=== PATIENT | male | born 1930 | race Caucasian/White ===

== ENCOUNTER 2017-11-10 15:12 | Emergency (ER) | payer MEDICARE, BC ==
[2016-11-06 11:19] VITALS: Wt 86.9 kg
[~2017-11-10 15:12] MED LIST changes: -AZIT-18 PO; -IPRA15SP7 NS
--- NOTE | 2017-11-10 15:21 | ER Report ---
History and Physical Time Seen By MD: 15:20 Hx. of Stated Complaint: NOT FEELING FOR 2 OR 3 DAYS HPI/ROS CHIEF COMPLAINT: DO NOT FEEL WELL HISTORY OF PRESENT ILLNESS: PT statse that 2-3 days ago starsted with sorethroat , bodyaches, generalized weakness, runny nose. Pt also feeling more sob. Pt wears 5 L NC chronically for oxygen. PT has not increase dhis oxygen. no cp. no fevers. + chills. no nausea or diarrhea. no vomiting. Pt did get a flu shot REVIEW OF SYSTEMS: Constitutional: No fever, + chills. Eyes: No discharge. ENT: + sore throat. Cardiovascular: No chest pain, no palpitations. Respiratory: + cough, + shortness of breath. Gastrointestinal: No abdominal pain, no vomiting. Genitourinary: No hematuria. Musculoskeletal: No back pain. Skin: No rashes. Neurological: No headache. Allergies: Coded Allergies: No Known Drug Allergies (Unverified , 11/10/17) Home Meds Active Scripts Rosuvastatin Calcium (CRESTOR) 10 Mg Tab, 10 MG PO HS, #0 TAB Prov:ABE LEVY MD 11/08/16 Reported Medications Atenolol (ATENOLOL) 25 Mg Tablet, 0.5 TAB PO QDAY, TAB 11/09/16 Omeprazole (OMEPRAZOLE) 20 Mg Capsule.dr, 1 CAP PO QDAY, CAP 11/05/16 Lisinopril (LISINOPRIL) 20 Mg Tablet, 20 MG PO QDAY, TAB 11/05/16 Prednisone (PREDNISONE) 20 Mg Tablet, 40 MG PO DAILY, TAB 11/05/16 Tamsulosin Hcl (FLOMAX) 0.4 Mg Cap.er.24h, 0.4 MG PO DAILY, CAP 11/05/16 Tiotropium [place] (SPIRIVA) 18 Mcg/Cap Inh, 18 MCG INH DAILY, INH 11/05/16 Furosemide (FUROSEMIDE) 20 Mg Tablet, 1 TAB PO BID, TAB 10/21/16 Cholecalciferol (Vitamin D3) (VITAMIN D3) 1,000 Unit Capsule, 1000 UNIT PO QDAY , CAPSULE 10/21/16 Allopurinol (Allopurinol) 300 Mg Tablet, 150 MG PO QDAY 10/21/16 Aspirin (ASPIR 81) 81 Mg Tablet.dr, 81 MG PO QDAY, TAB 10/21/16 Cyanocobalamin (Vitamin B-12) (B-12) 1,000 Mcg Tablet, 1 TAB PO QDAY 10/21/16 Docusate Sodium (DULCOLAX STOOL SOFTENER) 100 Mg Capsule, 100 MG PO PRN, CAPSULE 10/21/16 Past Medical/Surgical History Pmhx: htn, mi, copd, sycope, afib Pshx: pacer Reviewed Nurses Notes: Yes Old Medical Records Reviewed: Yes Hx Smoking: Yes Smoking Status: Former Smoker Exposure to Second Hand Smoke?: No Hx Substance Use Disorder: No Hx Alcohol Use: No Constitutional Vital Sign - Last 24 Hours 11/10/17 11/10/17 11/10/17 11/10/17 15:14 15:38 15:38 15:40 Temp 98.7 Pulse 84 89 Resp 18 12 B/P (MAP) 100/70 Pulse Ox 95 95 100 O2 Delivery Nasal Cannula Nasal Cannula Nasal Cannula O2 Flow Rate 4.0 4.0 11/10/17 15:40 Pulse 65 Resp 12 Physical Exam General Appearance: The patient is alert, has no immediate need for airway protection and no signs of toxicity. Eyes: Pupils equal and round no pallor or injection, EOMI ENT: no pharyngeal erythema or exudates, Mucous membranes are moist, TM are nl b/l Respiratory: There are no retractions, lungs have rhonchi b/l and decreased breath sounds Cardiovascular: Regular rate and rhythm. pulses are equal and symmetrical Gastrointestinal: Abdomen is soft and non tender, no masses, bowel sounds normal, no guarding, no rigidity or rebound Neurological: Cranial nerves II-XII grossly intact, no sensory or motor loss Skin: Warm and dry, no rashes. Musculoskeletal: Neck is supple non tender, no vertebral tenderness Extremities are nontender, non swollen and have full range of motion. DIFFERENTIAL DIAGNOSIS: After history and physical exam differential diagnosis was considered for pneumonia, influenza, bronchitis, sinusitis Medical Decision Making Data Points Result Diagram: 11/10/17 1504 11/10/17 1504 Laboratory Hematology Test 11/10/17 15:04 11/10/17 15:17 Red Blood Count 4.95 M/uL (4.00-5.60) Mean Corpuscular Volume 94.5 fL (80.0-96.0) Mean Corpuscular Hemoglobin 31.2 pg (26.0-33.0) Mean Corpuscular Hemoglobin Concent 33.0 g/dL (32.0-36.0) Red Cell Distribution Width 15.2 % (11.5-14.5) Mean Platelet Volume 8.9 fL (7.2-11.1) Neutrophils (%) (Auto) 71.0 % (39.4-72.5) Lymphocytes (%) (Auto) 19.8 % (17.6-49.6) Monocytes (%) (Auto) 6.5 % (4.1-12.4) Eosinophils (%) (Auto) 2.4 % (0.4-6.7) Basophils (%) (Auto) 0.3 % (0.3-1.4) Nucleated RBC Relative Count (auto) 0.1 /100WBC Neutrophils # (Auto) 5.3 K/uL (2.0-7.4) Lymphocytes # (Auto) 1.5 K/uL (1.3-3.6) Monocytes # (Auto) 0.5 K/uL (0.3-1.0) Eosinophils # (Auto) 0.2 K/uL (0.0-0.5) Basophils # (Auto) 0.0 K/uL (0.0-0.1) Nucleated RBC Absolute Count (auto) 0.01 K/uL Sodium Level 146 mmol/L (137-145) Potassium Level 3.7 mmol/L (3.5-5.0) Chloride Level 92 mmol/L (98-107) Carbon Dioxide Level 43 mmol/L (22-30) Blood Urea Nitrogen 24 mg/dl (9-21) Creatinine 1.30 mg/dl (0.66-1.25) Glomerular Filtration Rate Calc 52.2 Random Glucose 180 mg/dl (75-110) Calcium Level 9.5 mg/dl (8.4-10.2) Total Bilirubin 0.6 mg/dl (0.2-1.3) Aspartate Amino Transf (AST/SGOT) 24 U/L (0-35) Alanine Aminotransferase (ALT/SGPT) 26 U/L (0-56) Alkaline Phosphatase 99 U/L (0-126) Total Protein 7.3 gm/dl (6.3-8.2) Albumin 3.7 g/dl (3.5-5.0) Influenza Virus Type A (PCR) Negative (NEGATIVE) Influenza Virus Type B (PCR) Negative (NEGATIVE) Group A Streptococcus Screen Negative (NEGATIVE) Chemistry Test 11/10/17 15:04 11/10/17 15:17 White Blood Count 7.5 k/uL (4.5-11.0) Red Blood Count 4.95 M/uL (4.00-5.60) Hemoglobin 15.5 g/dL (14.0-18.0) Hematocrit 46.8 % (42.0-52.0) Mean Corpuscular Volume 94.5 fL (80.0-96.0) Mean Corpuscular Hemoglobin 31.2 pg (26.0-33.0) Mean Corpuscular Hemoglobin Concent 33.0 g/dL (32.0-36.0) Red Cell Distribution Width 15.2 % (11.5-14.5) Platelet Count 131 K/uL (150-450) Mean Platelet Volume 8.9 fL (7.2-11.1) Neutrophils (%) (Auto) 71.0 % (39.4-72.5) Lymphocytes (%) (Auto) 19.8 % (17.6-49.6) Monocytes (%) (Auto) 6.5 % (4.1-12.4) Eosinophils (%) (Auto) 2.4 % (0.4-6.7) Basophils (%) (Auto) 0.3 % (0.3-1.4) Nucleated RBC Relative Count (auto) 0.1 /100WBC Neutrophils # (Auto) 5.3 K/uL (2.0-7.4) Lymphocytes # (Auto) 1.5 K/uL (1.3-3.6) Monocytes # (Auto) 0.5 K/uL (0.3-1.0) Eosinophils # (Auto) 0.2 K/uL (0.0-0.5) Basophils # (Auto) 0.0 K/uL (0.0-0.1) Nucleated RBC Absolute Count (auto) 0.01 K/uL Glomerular Filtration Rate Calc 52.2 Calcium Level 9.5 mg/dl (8.4-10.2) Total Bilirubin 0.6 mg/dl (0.2-1.3) Aspartate Amino Transf (AST/SGOT) 24 U/L (0-35) Alanine Aminotransferase (ALT/SGPT) 26 U/L (0-56) Alkaline Phosphatase 99 U/L (0-126) Total Protein 7.3 gm/dl (6.3-8.2) Albumin 3.7 g/dl (3.5-5.0) Influenza Virus Type A (PCR) Negative (NEGATIVE) Influenza Virus Type B (PCR) Negative (NEGATIVE) Group A Streptococcus Screen Negative (NEGATIVE) EKG/Imaging Imaging hyperinflated lungs ED Course/Re-evaluation Clinical Indication for ER IV: IV Access ED Course 11/10/2017 5:21:54 pm Called lab. pt influenza still pending secondary to delay on placeing on machine. 11/10/2017 5:36:52 pm Pts influenza is negative. Pt states he feels better after fluid. 11/10/2017 5:44:13 pm Will d/c pt on abx and steriods. Pt has oxygen at home. Decision to Disposition Date: Nov 10, 2017 Decision to Disposition Time: 17:38 Depart Departure Latest Vital Signs Vital Signs Date Time Temp Pulse Resp B/P (MAP) Pulse Ox O2 Delivery O2 Flow Rate FiO2 11/10/17 15:40 65 12 11/10/17 15:40 100 Nasal Cannula 4.0 11/10/17 15:14 98.7 100/70 Impression: Primary Impression: Dehydration Additional Impression: COPD (chronic obstructive pulmonary disease) with acute bronchitis Condition: Improved Disposition: HOME OR SELF-CARE New Scripts Azithromycin 250 Mg Tab (AZITHROMYCIN 250 MG TAB) 250 Mg Tablet 1 TAB PO QDAY, #6 TAB 2 tabs tomorrow then one tab once a day until finished. Prov: TEAGAN ROBLES V DO 11/10/17 Prednisone (PREDNISONE) 20 Mg Tablet 20 MG PO BID, #10 TAB Prov: TEAGAN ROBLES V DO 11/10/17 Patient Instructions: COPD (Chronic Obstructive Pulmonary Disease) (ED) Additional Instructions: Your xray did not show pneumonia. You do not have the flu You were dehydrated and have bronchitis with exacerbation of your emphyema/COPD We gave you your evening medications. Scripts were sent to [facility]. Zithromax 2 pills tomorrow then one pill once a day each day to follow. Prednisone one pill twice a day until finished. Follow up with your doctor. Return if symptoms worsen prior to seeing your doctor. Problem Qualifiers TEAGAN ROBLES DO Nov 10, 2017 15:21
[2017-11-10] MEDS ORDERED: ALBUTEROL/IPRATROPIUM 3 ML NEB NEB ONE (15:30)
[2017-11-10 15:44] LABS: PLATELET COUNT, AUTOMATED 131 K/uL (150-450)
[2017-11-10] MEDS ORDERED: NS(*) 0.9% 500 ML BAG 500 ML IV ONE (15:55)
--- NOTE | 2017-11-10 16:39 | RADIOLOGY IMAGING REPORT ---
FACILITY: [facility] [place] PATIENT NAME: Broderick Montanez : 1930 MR: [id number] V: [id number] EXAM DATE: ORDERING PHYSICIAN: TEAGAN ROBLES TECHNOLOGIST: Location: [facility] [place] Patient: Broderick Montanez : 1930 Visit/Account:[id number] Date of Sevice: 11/10/2017 Exam type: CHEST PA AND LAT History: cough, sob Comparison: November 05, 2016. Findings: There is hyperexpansion the lung crain with flattening the hemidiaphragms. There is mild by basilar pleural parenchymal scarring. There is no evidence of acute-appearing pulmonary consolidation. Car diac silhouette is enlarged but unchanged. There Is a large hiatal hernia. A cardiac monitoring de vice projects over the anterior aspect of the medial left thorax IMPRESSION: 1. Hyperinflation lung crain Mild chronic pleural parenchymal scarring with no evidence of acute pulmonary consolidation Mild cardiomegaly Large hiatal hernia Report Dictated By: Mariaelena Willson MD at 11/10/2017 4:32 PM Report E-Signed By: Mariaelena Willson MD at 11/10/2017 4:34 PM WSN:[id number]
[2017-11-10 17:30] VITALS: BP 152/89
[2017-11-10] MEDS ORDERED: methylPREDNIS SUCC 125 MG/2ML IVP ONE (17:40)
[2017-11-10] MEDS ORDERED: AZITHROMYCIN 250 MG TAB PO ONE (17:40)
[2017-11-10] MEDS ORDERED: PRED20TA6 PO (17:49)
[2017-11-10] MEDS ORDERED: AZIT-18 PO (17:49)
[2017-11-10] MEDS ORDERED: EMS NS 0.9%(*) 1000 ML BAG 1,000 ML IV ONE (20:05)
== END 2017-11-10 18:00 | disposition home or self-care (01) ==
LOC: ER 15:17
DX: J44.9 Chronic obstructive pulmonary disease, unspecified (principal); E86.0 Dehydration; I51.7 Cardiomegaly; K44.9 Diaphragmatic hernia without obstruction or gangrene
CPT/HCPCS: 71046; 85025; 87081; 87502; 87880; 94640; 96361; 96374; 99285; J2930; J7620; Q0144; 82040; 82247; 82310; 82374; 82435; 82565; 82947; 84075; 84132; 84155; 84295; 84450; 84460; 84520

== ENCOUNTER → 2017-11-10 | Outpatient (CLI) | payer MEDICARE, BC ==
[2016-11-06 11:19] VITALS: BMI 25.8
[~2017-11-10] MED LIST: ALLO-2 PO; ASPI-1471 PO; ATEN-65 PO; AZIT-18 PO; CHOL100059 PO; CYAN100017 PO; DOCU-442 PO; FURO-45 PO; IPRA15SP7 NS; LISI20TA29 PO; OMEP-125 PO; PRED20TA6 PO; ROS10 PO; TAMS0.4C25 PO; TERA2CAP54 PO; TIO18R INH
== END ==
LOC: AMB 18:06
PROVIDERS: ATTEND Nurse Practitioner
DX: R53.1 Weakness (principal)
CPT/HCPCS: A0425; A0428

== ENCOUNTER → 2017-11-10 | Outpatient (CLI) | payer MEDICARE, BC ==
[2016-11-06 11:19] VITALS: BMI 25.8
== END ==
LOC: AMB 14:52
PROVIDERS: ATTEND Nurse Practitioner
DX: R53.1 Weakness (principal); I48.91 Unspecified atrial fibrillation; R06.00 Dyspnea, unspecified
CPT/HCPCS: A0425; A0427

== ENCOUNTER 2017-11-17 12:00 | Emergency (ER) | payer MEDICARE, BC ==
[2016-11-06 11:19] VITALS: Wt 90.7 kg
[~2017-11-17 12:00] MED LIST changes: +AZIT-18 PO; +IPRA15SP7 NS
--- NOTE | 2017-11-17 12:11 | ER Report ---
History and Physical Time Seen By MD: 12:11 HPI/ROS CHIEF COMPLAINT: Hypoxia HISTORY OF PRESENT ILLNESS: 87-year-old male patient presents to emergency room with complaint of hypoxia. Patient states that he is feeling fine. He states he is not feeling short of breath. He was seen at his ENT. When they checked his vital signs and noted that he had oxygen saturation of 75%. At that time they felt that he needed to be evaluated here in the emergency room. On arrival here in the emergency room patient was on oxygen and was satting in the 90s. He was placed on room air for a brief period of time and he did desat into the 70s. Patient denies having any cough. Patient states he is more annoyed with a continual runny nose. He states it is worse with eating. Has what he was seeing the ENT for. REVIEW OF SYSTEMS: Respiratory: As noted above Cardiovascular: No chest pain, no palpitations. Gastrointestinal: No vomiting, no abdominal pain. Musculoskeletal: No back pain. Allergies: Coded Allergies: No Known Drug Allergies (Unverified , 11/17/17) Home Meds Active Scripts Ipratropium [place] 0.06% Ns (IPRATROPIUM BROMIDE 0.06% NS) 15 Ml [place], 2 SPRAYS NS BID, #1 BOT Prov:MARY ELLEN RAMIREZ JR, MD 11/17/17 Azithromycin 250 Mg Tab (AZITHROMYCIN 250 MG TAB) 250 Mg Tablet, 1 TAB PO QDAY, #6 TAB 2 tabs tomorrow then one tab once a day until finished. Prov:TEAGAN ROBLES DO 11/10/17 Prednisone (PREDNISONE) 20 Mg Tablet, 20 MG PO BID, #10 TAB Prov:TEAGAN ROBLES DO 11/10/17 Rosuvastatin Calcium (CRESTOR) 10 Mg Tab, 10 MG PO HS, #0 TAB Prov:ABE LEVY MD 11/08/16 Reported Medications Atenolol (ATENOLOL) 25 Mg Tablet, 0.5 TAB PO QDAY, TAB 11/09/16 Omeprazole (OMEPRAZOLE) 20 Mg Capsule.dr, 1 CAP PO QDAY, CAP 11/05/16 Lisinopril (LISINOPRIL) 20 Mg Tablet, 20 MG PO QDAY, TAB 11/05/16 Prednisone (PREDNISONE) 20 Mg Tablet, 40 MG PO DAILY, TAB 11/05/16 Tamsulosin Hcl (FLOMAX) 0.4 Mg Cap.er.24h, 0.4 MG PO DAILY, CAP 11/05/16 Tiotropium [place] (SPIRIVA) 18 Mcg/Cap Inh, 18 MCG INH DAILY, INH 11/05/16 Furosemide (FUROSEMIDE) 20 Mg Tablet, 1 TAB PO BID, TAB 10/21/16 Cholecalciferol (Vitamin D3) (VITAMIN D3) 1,000 Unit Capsule, 1000 UNIT PO QDAY , CAPSULE 10/21/16 Allopurinol (Allopurinol) 300 Mg Tablet, 150 MG PO QDAY 10/21/16 Aspirin (ASPIR 81) 81 Mg Tablet.dr, 81 MG PO QDAY, TAB 10/21/16 Cyanocobalamin (Vitamin B-12) (B-12) 1,000 Mcg Tablet, 1 TAB PO QDAY 10/21/16 Docusate Sodium (DULCOLAX STOOL SOFTENER) 100 Mg Capsule, 100 MG PO PRN, CAPSULE 10/21/16 Past Medical/Surgical History Patient has a past medical history of hypertension, COPD, osteomyelitis, hard of hearing, bladder cancer. Patient has surgical history of pacemaker, orthopedic surgery. Reviewed Nurses Notes: Yes Hx Smoking: Yes Smoking Status: Former Smoker Exposure to Second Hand Smoke?: No Hx Substance Use Disorder: No Hx Alcohol Use: No Constitutional Vital Sign - Last 24 Hours 11/17/17 12:11 Temp 98.3 Pulse 71 Resp 20 B/P (MAP) 138/99 Pulse Ox 98 O2 Delivery Nasal Cannula Physical Exam General Appearance: The patient is alert, has no immediate need for airway protection and no current signs of toxicity. Respiratory: Chest is non tender, lungs are clear to auscultation. Cardiac: regular rate and rhythm Gastrointestinal: Abdomen is soft and non tender, no masses, bowel sounds normal. Musculoskeletal: Neck: Neck is supple and non tender. Extremities have full range of motion and are non tender. Skin: No rashes or lesions. DIFFERENTIAL DIAGNOSIS: After history and physical exam differential diagnosis was considered for shortness of breath including but not limited to pulmonary infectious process, COPD, asthma, pulmonary embolus and congestive heart failure. Medical Decision Making ED Course/Re-evaluation ED Course Patient was admitted and examined, history of physical or obtained. Differential diagnoses were considered. On examination lungs were slightly diminished in the bases. He was moving air. On 5 L of oxygen, which is where the patient normally is he is satting 98%. I do have some concerns that it could very well be the concentrator that is now working as well as it should. I requested that the nurse give the patient up and walk him. She did get him up with a tank of oxygen was able to walk approximately 20 feet at which time he continued to stay and 98%. She switched him over to the concentrator, low patient was sitting there he dropped down to 88%. I discussed this with the patient. I discussed with him that I would like him to talk with his oxygen company about either replacing his concentrator or giving him a new one. Patient states that is actually his own concentrator which he purchased. He is more concerned about the cost. But states that the concentrator works fine for him. He is off a lot of just for an hour at a time. We will go ahead and discharge patient home at this time. Since he is feeling fine and his oxygen levels are fine was on the appropriate amount of oxygen we will recommend that he get his concentrator looked at and follow-up with Dr. Ramirez ENT. I did call and talk with Dr. Ramirez's office. They were only able to get him in in the middle of November. They will talk with Dr. Ramirez see if they can double book him at an appointment for his evaluation since he missed it today. I discussed this patient who verbalized understanding and agreement with plan. Decision to Disposition Date: Nov 17, 2017 Decision to Disposition Time: 12:48 Depart Departure Latest Vital Signs Vital Signs Date Time Temp Pulse Resp B/P (MAP) Pulse Ox O2 Delivery O2 Flow Rate FiO2 11/17/17 12:11 98.3 71 20 138/99 98 Nasal Cannula Impression: Primary Impression: Hypoxia Condition: Improved Disposition: HOME OR SELF-CARE Patient Instructions: Hypoxia (ED) Additional Instructions: With you feeling fine I don't think that there is anything that needs to be done here in the ER. I would encourage you to get your portable concentrator evaluated, as I don't think that you are getting enough oxygen from that. Follow up with Dr. Ramirez, they will call to make an appointment. Return to the ER if condition worsens. MEHRDAD SUAREZ Nov 17, 2017 12:11
[2017-11-17 12:30] VITALS: BP 135/86
== END 2017-11-17 12:56 | disposition home or self-care (01) ==
LOC: ER 12:08
DX: R09.02 Hypoxemia (principal)
CPT/HCPCS: 99281

== ENCOUNTER 2017-12-14 19:58 | Inpatient (IN) | payer MEDICARE, BC ==
[~2017-12-14] VITALS: Ht 182.9 cm; Wt 78.5 kg
[~2017-12-14 19:58] MED LIST changes: -BUDE0.5A6 IH; -CETI-169 PO; -CLOP75TA PO; -FINA5TAB67 PO; -FLUO-176 PO; -FLUO-177 PO; -IPRA3AMP21 IH; -ROSU10TA13 PO
--- NOTE | 2017-12-14 20:04 | ER Report ---
History and Physical Time Seen By MD: 19:59 HPI/ROS CHIEF COMPLAINT: dehydrated, not eating HISTORY OF PRESENT ILLNESS: This is an 87 year old male. He has not been eating or drinking much for a few days. Poor appetite. he is feeling weak and dizzy and felt like he was getting dehydrated. He denies any pain. EMS found that the patient was in atrial flutter, and he does not recall having this in the past. He has no fevers or chills. He has not had shortness of breath. He is on chronic oxygen therapy at 5 liters by nasal canula. REVIEW OF SYSTEMS: Constitutional: No fever or chills. Eyes: Denies any vision changes. ENT: Denies sore throat or congestion. Cardiovascular: No chest pain. Respiratory: No cough. No shortness of breath. Gastrointestinal: No abdominal pain. No nausea or vomiting. Musculoskeletal: No pain, just feels weak. Skin: No rashes. Neurological: No numbness. No weakness. Allergies: Coded Allergies: prednisone (Verified Adverse Reaction, Unknown, hallucination, 11/17/17) Home Meds Active Scripts Ipratropium [place] 0.06% Ns (IPRATROPIUM BROMIDE 0.06% NS) 15 Ml [place], 2 SPRAYS NS BID, #1 BOT 11 Refills Prov:MARY ELLEN RAMIREZ JR, MD 12/07/17 Azithromycin 250 Mg Tab (AZITHROMYCIN 250 MG TAB) 250 Mg Tablet, 1 TAB PO QDAY, #6 TAB 2 tabs tomorrow then one tab once a day until finished. Prov:TEAGAN ROBLES DO 11/10/17 Rosuvastatin Calcium (CRESTOR) 10 Mg Tab, 10 MG PO HS, #0 TAB Prov:ABE LEVY MD 11/08/16 Reported Medications Atenolol (ATENOLOL) 25 Mg Tablet, 0.5 TAB PO QDAY, TAB 11/09/16 Omeprazole (OMEPRAZOLE) 20 Mg Capsule.dr, 1 CAP PO QDAY, CAP 11/05/16 Lisinopril (LISINOPRIL) 20 Mg Tablet, 20 MG PO QDAY, TAB 11/05/16 Tamsulosin Hcl (FLOMAX) 0.4 Mg Cap.er.24h, 0.4 MG PO DAILY, CAP 11/05/16 Tiotropium [place] (SPIRIVA) 18 Mcg/Cap Inh, 18 MCG INH DAILY, INH 11/05/16 Furosemide (FUROSEMIDE) 20 Mg Tablet, 1 TAB PO BID, TAB 10/21/16 Cholecalciferol (Vitamin D3) (VITAMIN D3) 1,000 Unit Capsule, 1000 UNIT PO QDAY , CAPSULE 10/21/16 Allopurinol (Allopurinol) 300 Mg Tablet, 150 MG PO QDAY 10/21/16 Aspirin (ASPIR 81) 81 Mg Tablet.dr, 81 MG PO QDAY, TAB 10/21/16 Cyanocobalamin (Vitamin B-12) (B-12) 1,000 Mcg Tablet, 1 TAB PO QDAY 10/21/16 Docusate Sodium (DULCOLAX STOOL SOFTENER) 100 Mg Capsule, 100 MG PO PRN, CAPSULE 10/21/16 Reviewed Nurses Notes: Yes Hx Smoking: Yes Smoking Status: Former Smoker Exposure to Second Hand Smoke?: No Hx Substance Use Disorder: No Hx Alcohol Use: No Constitutional Vital Sign - Last 24 Hours 12/14/17 12/14/17 12/14/17 12/14/17 19:57 20:04 20:11 20:13 Temp 98.3 Pulse 84 74 Resp 20 21 B/P (MAP) 155/111 155/111 (126) Pulse Ox 99 99 O2 Delivery Nasal Cannula O2 Flow Rate 5.0 12/14/17 12/14/17 12/14/17 12/14/17 20:28 20:30 20:35 20:37 Pulse 68 74 Resp 21 17 B/P (MAP) 147/108 (121) 155/101 (119) 160/100 (120) Pulse Ox 99 100 12/14/17 12/14/17 12/14/17 12/14/17 20:42 20:43 20:50 21:00 Pulse 75 82 73 Resp 18 18 22 B/P (MAP) 155/101 (119) 160/100 (120) 148/104 (119) Pulse Ox 99 99 99 O2 Delivery Nasal Cannula Nasal Cannula 12/14/17 12/14/17 12/14/17 12/14/17 21:05 21:20 21:30 21:35 Pulse 71 75 70 Resp 39 20 34 B/P (MAP) 159/114 (129) Pulse Ox 99 98 99 12/14/17 12/14/17 12/14/17 12/14/17 21:50 22:00 22:05 22:10 Pulse 79 71 72 Resp 40 29 27 B/P (MAP) 178/108 (131) Pulse Ox 98 98 97 Physical Exam General Appearance: The patient is alert. No acute distress. Eyes: Pupils are equal, round. No pallor, injection or icterus. ENT: Mucous membranes are moist. Normal oral mucosa. Posterior oropharynx is normal. Neck: Supple and non tender. Respiratory: Lungs are clear to auscultation. Cardiovascular: Regular rate and rhythm. Has a 2/6 systolic murmur, no gallops or rubs. Gastrointestinal: Abdomen is soft and non tender. Nondistended. Normal active bowel sounds. Neurological: Alert and oriented x3. Generalized weakness, but no focal deficits. No cranial nerve deficits. Skin: Warm and dry. Musculoskeletal: Extremities are nontender. Full range of motion. No tenderness in palpation of the thoracic and lumbar spine. DIFFERENTIAL DIAGNOSIS: After history and physical exam, differential diagnosis was considered for generalized weakness including but not limited to electrolyte abnormality, dehydration, cardiac causes and infectious causes. He does have a prior history of atrial fibrillation. Medical Decision Making Data Points Result Diagram: 12/14/17195312/14/171953 Laboratory Hematology Test 12/14/17 19:54 Red Blood Count 5.08 M/uL (4.00-5.60) Mean Corpuscular Volume 95.0 fL (80.0-96.0) Mean Corpuscular Hemoglobin 31.1 pg (26.0-33.0) Mean Corpuscular Hemoglobin Concent 32.7 g/dL (32.0-36.0) Red Cell Distribution Width 15.2 % (11.5-14.5) Mean Platelet Volume 8.4 fL (7.2-11.1) Neutrophils (%) (Auto) 71.5 % (39.4-72.5) Lymphocytes (%) (Auto) 18.5 % (17.6-49.6) Monocytes (%) (Auto) 9.3 % (4.1-12.4) Eosinophils (%) (Auto) 0.4 % (0.4-6.7) Basophils (%) (Auto) 0.3 % (0.3-1.4) Nucleated RBC Relative Count (auto) 0.1 /100WBC Neutrophils # (Auto) 6.6 K/uL (2.0-7.4) Lymphocytes # (Auto) 1.7 K/uL (1.3-3.6) Monocytes # (Auto) 0.9 K/uL (0.3-1.0) Eosinophils # (Auto) 0.0 K/uL (0.0-0.5) Basophils # (Auto) 0.0 K/uL (0.0-0.1) Nucleated RBC Absolute Count (auto) 0.01 K/uL D-Dimer Quantitative (PE/DVT) 0.49 ug/ml (0-0.50) Sodium Level 146 mmol/L (137-145) Potassium Level 4.0 mmol/L (3.5-5.0) Chloride Level 94 mmol/L (98-107) Carbon Dioxide Level 40 mmol/L (22-30) Blood Urea Nitrogen 34 mg/dl (9-21) Creatinine 2.00 mg/dl (0.66-1.25) Glomerular Filtration Rate Calc 31.8 Random Glucose 109 mg/dl (75-110) Calcium Level 9.8 mg/dl (8.4-10.2) Magnesium Level 2.2 mg/dl (1.7-2.2) Total Bilirubin 0.7 mg/dl (0.2-1.3) Aspartate Amino Transf (AST/SGOT) 35 U/L (0-35) Alanine Aminotransferase (ALT/SGPT) 31 U/L (0-56) Alkaline Phosphatase 99 U/L (0-126) Troponin I 0.185 ng/ml B-Type Natriuretic Peptide 529 pg/ml (0-100) Total Protein 7.0 gm/dl (6.3-8.2) Albumin 3.7 g/dl (3.5-5.0) Chemistry Test 12/14/17 19:54 White Blood Count 9.2 k/uL (4.5-11.0) Red Blood Count 5.08 M/uL (4.00-5.60) Hemoglobin 15.8 g/dL (14.0-18.0) Hematocrit 48.2 % (42.0-52.0) Mean Corpuscular Volume 95.0 fL (80.0-96.0) Mean Corpuscular Hemoglobin 31.1 pg (26.0-33.0) Mean Corpuscular Hemoglobin Concent 32.7 g/dL (32.0-36.0) Red Cell Distribution Width 15.2 % (11.5-14.5) Platelet Count 160 K/uL (150-450) Mean Platelet Volume 8.4 fL (7.2-11.1) Neutrophils (%) (Auto) 71.5 % (39.4-72.5) Lymphocytes (%) (Auto) 18.5 % (17.6-49.6) Monocytes (%) (Auto) 9.3 % (4.1-12.4) Eosinophils (%) (Auto) 0.4 % (0.4-6.7) Basophils (%) (Auto) 0.3 % (0.3-1.4) Nucleated RBC Relative Count (auto) 0.1 /100WBC Neutrophils # (Auto) 6.6 K/uL (2.0-7.4) Lymphocytes # (Auto) 1.7 K/uL (1.3-3.6) Monocytes # (Auto) 0.9 K/uL (0.3-1.0) Eosinophils # (Auto) 0.0 K/uL (0.0-0.5) Basophils # (Auto) 0.0 K/uL (0.0-0.1) Nucleated RBC Absolute Count (auto) 0.01 K/uL D-Dimer Quantitative (PE/DVT) 0.49 ug/ml (0-0.50) Glomerular Filtration Rate Calc 31.8 Calcium Level 9.8 mg/dl (8.4-10.2) Magnesium Level 2.2 mg/dl (1.7-2.2) Total Bilirubin 0.7 mg/dl (0.2-1.3) Aspartate Amino Transf (AST/SGOT) 35 U/L (0-35) Alanine Aminotransferase (ALT/SGPT) 31 U/L (0-56) Alkaline Phosphatase 99 U/L (0-126) Troponin I 0.185 ng/ml B-Type Natriuretic Peptide 529 pg/ml (0-100) Total Protein 7.0 gm/dl (6.3-8.2) Albumin 3.7 g/dl (3.5-5.0) Coagulation Test 12/14/17 19:54 D-Dimer Quantitative (PE/DVT) 0.49 ug/ml EKG/Imaging EKG Interpretation 12 lead EKG: Rhythm: Atrial flutter, rate 84. [place]: Leftward axis QRS: Incomplete bundle branch block ST segments: No ST segment elevation or depression noted Imaging Examination: CHEST SINGLE AP Comparison: 11/10/2017 and earlier History: Difficulty breathing. Atrial flutter. Findings: Chronic pulmonary hyperexpansion and lung base predominant architectural distortion. Given differences in technique, lungs appear overall unchanged with no definite new or enlarging consolidation or nodule. No pneumothorax, edema, or effusion. Cardiac silhouette is mildly enlarged but unchanged. 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 Moderate sized hiatal hernia. No acute osseous abnormality. IMPRESSION: Chronic changes with no definite evidence of superimposed acute cardiopulmonary disease. Report Dictated By: Angel Yepez MD at 12/14/2017 8:33 PM ED Course/Re-evaluation Clinical Indication for ER IV: IV Access ED Course Orthostatic vital signs were attempted. The patient was able to tolerate laying and sitting, but was too weak to stand. He did not have a drop in blood pressure , but did have a slight increase in heart rate from 75-82 with going from laying to sitting. Decision to Disposition Date: Dec 14, 2017 Decision to Disposition Time: 21:36 Depart Departure Latest Vital Signs Vital Signs Date Time Temp Pulse Resp B/P (MAP) Pulse Ox O2 Delivery O2 Flow Rate FiO2 12/14/17 22:10 72 27 97 12/14/17 22:00 178/108 (131) 12/14/17 20:43 Nasal Cannula 12/14/17 20:11 5.0 12/14/17 19:57 98.3 Impression: Primary Impression: NSTEMI (non-ST elevated myocardial infarction) Condition: Condition Unchanged Disposition: Admitted from ER TREVOR GARCIA MD Dec 14, 2017 20:04
[2017-12-14] MEDS ORDERED: NS(*) 0.9% 1000 ML BAG 1,000 ML IV ONE (20:10)
--- NOTE | 2017-12-14 20:24 | EKG ---
FACILITY: [facility] PATIENT NAME: HEATHER CANDELARIA : [id number] MR: [id number] V: [id number] EXAM DATE: ORDERING PHYSICIAN: TREVOR GARCIA TECHNOLOGIST: JOSE CARLOS Roldan Reason : CARDIAC Blood Pressure : / mmHG Vent. Rate : 084 BPM Atrial Rate : 084 BPM P-R Int : 000 ms QRS Dur : 112 ms QT Int : 422 ms P-R-T Axes : -26 -42 154 degrees QTc Int : 498 ms Atrial flutter Left axis deviation Low voltage QRS Cannot rule out Anteroseptal infarct , age undetermined When compared with ECG of 05-NOV-2016 07:15, Now in atrial flutter. Difficult to compare ST-T Confirmed by ABE LEVY ([id number]) on 12/14/2017 10:43:18 PM Referred By: Confirmed By:ABE LEVY
[2017-12-14 20:29] LABS: PLATELET COUNT, AUTOMATED 160 K/uL (150-450)
--- NOTE | 2017-12-14 20:39 | RADIOLOGY IMAGING REPORT ---
FACILITY: [facility] PATIENT NAME: Broderick Montanez : 1930 MR: [id number] V: [id number] EXAM DATE: ORDERING PHYSICIAN: TREVOR GARCIA TECHNOLOGIST: Location: [facility] [place] Patient: Broderick Montanez : 1930 Visit/Account:[id number] Date of Sevice: 12/14/2017 Examination: CHEST SINGLE AP Comparison: 11/10/2017 and earlier History: Difficulty breathing. Atrial flutter. Findings: Chronic pulmonary hyperexpansion and lung base predominant architectural distortion. Given differences in technique, lungs appear overall unchanged with no definite new or enlarging consolidat ion or nodule. No pneumothorax, edema, or effusion. Cardiac silhouette is mildly enlarged but unchang ed. 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 Moderate sized hiatal hernia. No acute osseous abnormality. IMPRESSION: Chronic changes with no definite evidence of superimposed acute cardiopulmonary disease. Report Dictated By: Angel Yepez MD at 12/14/2017 8:33 PM Report E-Signed By: Angel Yepez MD at 12/14/2017 8:36 PM WSN:[id number]
[2017-12-14] MEDS ORDERED: ALBUTEROL 2.5 MG/3 ML NEB NEB PRN (22:30)
[2017-12-14] MEDS ORDERED: INFLUENZA VIRUS VAC 0.5 ML SYR IM ONLY ONE (22:30)
[2017-12-14] MEDS ORDERED: FUROSEMIDE 20 MG/2 ML VIAL IVP ONE (22:30)
[2017-12-14 22:40] VITALS: BP 168/87
--- NOTE | 2017-12-14 23:36 | History & Physical ---
History of Present Illness History of Present Illness 87yo male with CAD, COPD and recurrent syncope who brought to the ER for progressive weakness. He has had visual hallucinations for the last couple weeks. They are not everyday, but will see people in the room. For the last couple of days, he hasn't eaten or had much to drink. He, also, has been much weaker. He had another syncopal episode last night. It was like his usual events, where he is walking and then finds himself on the floor. He has been on 1/2 dosing of lisinopril for the last couple of weeks because of low normal BP at his PCP's office. His sister has noted that he has worsening ADAMSON over the last couple of weeks to months. He denies cp/sob/nausea/orthopnea/fevers/ chills/diarrhea. In the ER, he was given a liter of fluid. History Home Meds Active Scripts Ipratropium [place] 0.06% Ns (IPRATROPIUM BROMIDE 0.06% NS) 15 Ml [place], 2 SPRAYS NS BID, #1 BOT 11 Refills Prov:MARY ELLEN RAMIREZ JR, MD 12/07/17 Azithromycin 250 Mg Tab (AZITHROMYCIN 250 MG TAB) 250 Mg Tablet, 1 TAB PO QDAY, #6 TAB 2 tabs tomorrow then one tab once a day until finished. Prov:TEAGAN ROBLES DO 11/10/17 Rosuvastatin Calcium (CRESTOR) 10 Mg Tab, 10 MG PO HS, #0 TAB Prov:ABE LEVY MD 11/08/16 Reported Medications Atenolol (ATENOLOL) 25 Mg Tablet, 0.5 TAB PO QDAY, TAB 11/09/16 Omeprazole (OMEPRAZOLE) 20 Mg Capsule.dr, 1 CAP PO QDAY, CAP 11/05/16 Lisinopril (LISINOPRIL) 20 Mg Tablet, 20 MG PO QDAY, TAB 11/05/16 Tamsulosin Hcl (FLOMAX) 0.4 Mg Cap.er.24h, 0.4 MG PO DAILY, CAP 11/05/16 Tiotropium [place] (SPIRIVA) 18 Mcg/Cap Inh, 18 MCG INH DAILY, INH 11/05/16 Furosemide (FUROSEMIDE) 20 Mg Tablet, 1 TAB PO BID, TAB 10/21/16 Cholecalciferol (Vitamin D3) (VITAMIN D3) 1,000 Unit Capsule, 1000 UNIT PO QDAY , CAPSULE 10/21/16 Allopurinol (Allopurinol) 300 Mg Tablet, 150 MG PO QDAY 10/21/16 Aspirin (ASPIR 81) 81 Mg Tablet.dr, 81 MG PO QDAY, TAB 10/21/16 Cyanocobalamin (Vitamin B-12) (B-12) 1,000 Mcg Tablet, 1 TAB PO QDAY 10/21/16 Docusate Sodium (DULCOLAX STOOL SOFTENER) 100 Mg Capsule, 100 MG PO PRN, CAPSULE 10/21/16 Allergies: Coded Allergies: prednisone (Verified Adverse Reaction, Unknown, hallucination, 11/17/17) Patient History: FH: CHF (congestive heart failure) MOTHER FH: renal failure FATHER Hx Smoking: Yes Smoking Status: Former Smoker Exposure to Second Hand Smoke?: No Hx Alcohol Use: No Hx Substance Use Disorder: No Social Drug Use: Never Review of Systems All Systems Reviewed/Normal: Yes, Except as Noted Exam Vital Signs Vital Signs Date Time Temp Pulse Resp B/P (MAP) Pulse Ox O2 Delivery O2 Flow Rate FiO2 12/14/17 22:25 70 26 97 12/14/17 22:00 178/108 (131) 12/14/17 20:43 Nasal Cannula 12/14/17 20:11 5.0 12/14/17 19:57 98.3 General Appearance: Other (He is sleepy, but awakens easily. He has moderate work of breathing and is using abdominal accessory muscles) ENT: Moist Mucous Membranes Cardiovascular: Regular Rate and Rhythm, No JVD Respiratory: Clear to Auscultation (Decreased BS in the bases) GI: Abd Soft and Non-Tender Extremities: Edema (trace pitting in shins bilaterally) Integumentary: Jaundice, Cyanosis Medical Decision Making Data Points Result Diagram: 12/14/17195312/14/171953 Item Value Date Time Creatinine 0.80 mg/dl 11/09/16 0525 Creatinine 1.30 mg/dl H 11/10/17 150 Creatinine 2.00 mg/dl H 12/14/171953 Troponin I 0.185 ng/ml *H 12/14/171953 B-Type Natriuretic Peptide 529 pg/ml H 12/14/171953 B-Type Natriuretic Peptide 257 pg/ml H 11/09/16 0525 Total Bilirubin 0.7 mg/dl 12/14/171953 Magnesium Level 2.2 mg/dl 12/14/171953 Aspartate Amino Transf (AST/SGOT) 35 U/L 12/14/171953 Alanine Aminotransferase (ALT/SGPT) 31 U/L 12/14/171953 Alkaline Phosphatase 99 U/L 12/14/171953 Random Glucose 109 mg/dl 12/14/171953 Blood Urea Nitrogen 34 mg/dl H 12/14/171953 Blood Urea Nitrogen 24 mg/dl H 11/10/17 1504 Blood Urea Nitrogen 26 mg/dl H 11/09/16 0525 Neutrophils (%) (Auto) 71.5 % 12/14/171953 Lymphocytes (%) (Auto) 18.5 % 12/14/171953 Monocytes (%) (Auto) 9.3 % 12/14/171953 Eosinophils (%) (Auto) 0.4 % 12/14/171953 Basophils (%) (Auto) 0.3 % 12/14/171953 Nucleated RBC Relative Count (auto) 0.1 /100WBC 12/14/171953 D-Dimer Quantitative (PE/DVT) 0.49 ug/ml 12/14/171953 EKG / Imaging EKG Interpretation Vent. Rate : 084 BPM Atrial Rate : 084 BPM P-R Int : 000 ms QRS Dur : 112 ms QT Int : 422 ms P-R-T Axes : -26 -42 154 degrees QTc Int : 498 ms Atrial flutter Left axis deviation Low voltage QRS Cannot rule out Anteroseptal infarct , age undetermined When compared with ECG of 05-NOV-2016 07:15, Now in atrial flutter. Difficult to compare ST-T Confirmed by ABE LEVY ([id number]) on 12/14/2017 10:43:18 PM Imaging CXR - Chronic changes with no definite evidence of superimposed acute cardiopulmonary disease. Assessment and Plan Problems: (1) NSTEMI (non-ST elevated myocardial infarction) Status: Acute Assessment & Plan: His only complaint is weakness. He has had no anginal equivalents. This could be secondary to volume overload. ECG is without obvious ST-T abnormalities. However, he is now in atrial flutter, so it is difficult to compare to previous ECG's. He doesn't want to be transferred to be under the care of a Criminal Analyst. He and his sister express understanding that we can only medically manage this problem and aggressive treatment would include transfer and a possible heart catheterization. Will add Plavix to ASA, continue atenolol and rosuvastatin. Follow troponin. Echo tomorrow. The patient is a DNR/DNI. (2) Volume overload Status: Acute Assessment & Plan: He presented with weeks of progressive ADAMSON and an elevated BNP. He was given a liter of fluid in the ER. He is mildly-moderately tachypneic and is use abdominal accessory muscles. Will give IV Lasix one dose and follow symptoms, labs and exam. (3) ARF (acute renal failure) Status: Acute Assessment & Plan: The etiology is unclear. He hasn't had much oral intake, but appears fluid overloaded on exam. He was given a liter of fluid in the ER. Will stop lisinopril. (4) Atrial flutter Status: Acute Assessment & Plan: He is rate controlled. He has a h/o atrial flutter, per records, but isn't on stroke prophylaxis and denies he has that history. Continue atenolol. With his frequent syncope history with falls, and dual antiplatelet therapy, he is at high risk bleeding complications. (5) Weakness Status: Acute Assessment & Plan: Worsening over the last couple of days. His sister can no longer take care of him at home. OT/PT to evaluate. (6) CKD (chronic kidney disease) stage 3, GFR 30-59 ml/min Status: Chronic Assessment & Plan: Baseline creatinine appears to be 1.3, but only on lab that is recent to compare. (7) COPD (chronic obstructive pulmonary disease) Status: Chronic Assessment & Plan: Secondary to a long history of smoking. Will continue Spiriva and use albuterol prn. Lungs are clear, but he has increased work of breathing. See above. Copies to: NIDIA SLOAN DO Venous Thromboembolism Antithrombotics Is Pt On Any Antithrombotics?: No Exam Sepsis Risk: No Definite Risk ABE LEVY MD Dec 14, 2017 23:36
[2017-12-14] MEDS: CLOPIDOGREL BISULFATE 75MG TAB PO SCH (23:42)
[2017-12-15] VITALS (8 sets, daily range): BP systolic 121–171; BP diastolic 78–106; Ht 182.9 cm; Wt 78.5 kg
[2017-12-15 05:44] LABS: PLATELET COUNT, AUTOMATED 136 K/uL (150-450)
[2017-12-15] MEDS: TIOTROPIUM BROM INH 18 MCG/CAP INH SCH (06:06)
[2017-12-15] MEDS ORDERED: ENOXAPARIN 30 MG/0.3 ML SYR SC SCH (09:00)
[2017-12-15] MEDS: CLOPIDOGREL BISULFATE 75MG TAB PO SCH (09:03)
[2017-12-15] MEDS: ALLOPURINOL 300 MG TAB PO SCH (09:04)
[2017-12-15] MEDS: TAMSULOSIN HCL 0.4 MG CAP PO SCH (09:04)
[2017-12-15] MEDS: PANTOPRAZOLE SOD 40 MG TABEC PO SCH (09:04)
[2017-12-15] MEDS: ATENOLOL 25 MG TAB PO SCH (09:04)
[2017-12-15] MEDS: ASPIRIN 81 MG ENTERIC COATED PO SCH (09:04)
--- NOTE | 2017-12-15 11:14 | Hospitalist Progress Note ---
Subjective Progress Notes Subjective He reports feeling "Ok...while I am in bed". He denies any dyspnea, dizziness/ lightheadedness. Physical Exam Vital Signs Date Time Temp Pulse Resp B/P (MAP) Pulse Ox O2 Delivery O2 Flow Rate FiO2 12/15/17 10:07 93 Nasal Cannula 3.5 12/15/17 07:20 98.4 65 16 143/86 (105) Intake and Output 12/16/17 07:00 # Voids 1 General Appearance: Alert, Awake Cardiovascular: Other (Irregular distant tones) Respiratory: Other (diminished breath sounds bilaterally no rales or wheezes noted) GI: Soft and Non-Tender Extremities: Warm, Perfused, Edema (trace pedal edema) Result Diagram: 12/15/17 0507 12/15/17 0507 Assessment and Plan Problems: (1) NSTEMI (non-ST elevated myocardial infarction) Status: Acute Assessment & Plan: His only complaint was weakness. He has had no anginal symptoms. ECG is without obvious ST-T abnormalities. He is in atrial flutter, so it is difficult to compare to previous ECG's. He doesn't want to be transferred to be under the care of a Masseur/Masseuse. He and his sister express understanding that we can only medically manage this problem and aggressive treatment would include transfer and a possible heart catheterization. We added Plavix to ASA, continue atenolol and rosuvastatin. Follow troponin. Echocardiogram prelim reports shows preserved EF (final report pending). The patient is a DNR/DNI. (2) Volume overload Status: Acute Assessment & Plan: He presented with weeks of progressive ADAMSON and an elevated BNP. He was given a liter of fluid in the ER. He was mildly-moderately tachypneic. He did get one dose of IV Lasix and is improved. Will continue to monitor status closely. Will hold any further diuresis today as his lab show some acute on chronic renal failure with pre-renal findings. (3) ARF (acute renal failure) Status: Acute Assessment & Plan: The etiology is unclear. Probably pre-renal with use of diuretics and decreased intake. He hasn't had much oral intake, but appeared fluid overloaded on exam. He was given a liter of fluid in the ER and then appeared to need some diuresis. We did hold his usual lisinopril. (4) Atrial flutter Status: Acute Assessment & Plan: He is rate controlled. He has a h/o atrial flutter, per records, but isn't on stroke prophylaxis and denies he has that history. Continue atenolol. With his frequent syncope history with falls and dual antiplatelet therapy, he is at high risk bleeding complications. (5) Weakness Status: Acute Assessment & Plan: Worsening over the last couple of days. His sister can no longer take care of him at home. OT/PT to evaluate. (6) CKD (chronic kidney disease) stage 3, GFR 30-59 ml/min Status: Chronic Assessment & Plan: Baseline creatinine appears to be 1.3. He has improved slightly from 2.0 at admission to 1.9 this AM. (7) COPD (chronic obstructive pulmonary disease) Status: Chronic Assessment & Plan: Secondary to a long history of smoking. Will continue Spiriva and use albuterol prn. Lungs are fairly clear this AM. Exam Sepsis Risk: No Definite Risk HIEN PASTOR MD Dec 15, 2017 11:14
[2017-12-15] MEDS ORDERED: IPRA3AMP21 IH (15:36)
[2017-12-15] MEDS ORDERED: ROSU10TA13 PO (15:36)
[2017-12-15] MEDS ORDERED: FINA5TAB67 PO (15:36)
[2017-12-15] MEDS ORDERED: FLUO-176 PO (15:36)
[2017-12-15] MEDS ORDERED: PRED20TA6 PO (15:36)
[2017-12-15] MEDS ORDERED: BUDE0.5A6 IH (15:36)
[2017-12-15] MEDS ORDERED: CETI-169 PO (15:36)
[2017-12-15] MEDS ORDERED: FLUO-177 PO (15:40)
--- NOTE | 2017-12-15 20:18 | RADIOLOGY IMAGING REPORT ---
FACILITY: [facility] PATIENT NAME: HEATHER CANDELARIA : [id number] MR: [id number] V: [id number] EXAM DATE: [id number] ORDERING PHYSICIAN: ABE LEVY TECHNOLOGIST: Myron Verma EXAMINATION:TWO-DIMENSIONAL ECHOCARDIOGRAPH REASON:NON ST SEGMENT ELEVATED UT 2D Measurements (normal values in centimeters) LV endLV endRV endVent.LV PostAorticLeftPercent DiastolicSystolicDiastolicSeptumWallRootAtriumShortening (3.5-5.7)(0.9-2.6)(0.6-1.1)(0.6-1.1)(2.0-3.7)(1.9-4.0)(25-35%) [id number]% STROKE VOLUME: 57ml ESTIMATED EJECTION FRACTION:69% PARASTERNAL LONG AXIS: Overall left ventricular function appears to be normal. There may be a slight area of hypokinesis at the apex of the left ventricle. The right ventricle appears to contract normally. The aortic valve also appears to open normally as well as the mitral valve. There is mild aortic sclerosis noted. Right ventricular TAPSE is measured within normal ranges at 3.0 indicating probable normal right ventricular function. Color examination of the valves revealed a trace amount of mitral insufficiency in this view & some tricuspid insufficiency. PARASTERNAL SHORT AXIS: Overall left ventricular function again appears to be normal. Some mild flattening along the interventricular septum suggestive of increased right ventricular pressures. Right ventricle is mildly enlarged. Aortic valve is trileaflet in configuration & is mildly sclerotic but not stenotic. Pulmonic valve appears to open normally. There is a trace to mild amount of pulmonic insufficiency present. APICAL FOUR AND TWO CHAMBER: Normal left ventricular ejection fraction with an area of hypokinesis at the apex of the left ventricle. Right ventricle appears to be mildly enlarged. Aortic valve area & mitral valve area both measure within normal ranges at 2.4 & 4.2cm2 respectively. Left atrial volume is measured within normal ranges at 25ml/m2. Right atrial volume is severely increased at 43ml/m2. The tricuspid regurgitation Vmax measured approximately 4.5m/sec. Mild amount of mitral insufficiency is noted. Trace of aortic insufficiency is noted. A mild to moderate amount of tricuspid insufficiency is noted. Mild mitral annular calcification is noted. The right ventricle appears to be mildly thickened. The mitral regurgitation is somewhat eccentric directed more toward the inner atrial septum. SUBCOSTAL VIEW: Question of a very small pericardial effusion vs a pericardial fat pad. Moderate to borderline severe amount of tricuspid insufficiency is noted. No atrioseptal or ventriculoseptal defects were appreciated. Doppler examination of the mitral valve in diastole does reveal a variable pattern between the normal & the A wave being greater than the E wave. IVC is normal in size. OVERALL IMPRESSION: 1. Normal left ventricular ejection fraction of estimated 69% with a mild to moderate decrease in diastolic function. 2. Mild to borderline moderate left ventricular thickening but no evidence for any outflow tract obstruction. 3. Severe right atrial enlargement & moderate right ventricular enlargement. The right ventricle appears to contract normally. There does appear to be some mild right ventricular hypertrophy noted. 4. A trileaflet aortic valve which is somewhat sclerotic but not stenotic. There is a trace of aortic insufficiency noted. 5. Mild amount of mitral insufficiency is noted with mild mitral annular calcification & a somewhat eccentric jet of mitral regurgitation directed toward the inner atrial septum suggesting that there is decreased movement in the posterior leaf of the mitral valve. No mitral stenosis was noted. 6. Mild amount of pulmonic insufficiency. 7. A moderate to borderline severe amount of tricuspid insufficiency with estimated right ventricular systolic pressures at 89mm Hg which does include an estimated right atrial pressure of 8mm Hg indicating severe pulmonary hypertension & increased right ventricular systolic pressures. 8. The aortic root is mildly enlarged. 9. Questionable small pericardial effusion noted with no evidence for any tamponade. This could be possibly a pericardial fat pad but appears more to resemble fluid suggesting the pericardial effusion. 10. In comparison with the examination done on 11/08/16, the ejection fraction has gotten slightly better. There still appears to be a small area of hypokinesis at the apex of the left ventricle. The right ventricular systolic pressures have also increased from 61mm Hg to 89mm Hg. The left atrial volume has decreased but the right atrial volume is still significantly increased. Dictated by: Kevin Calloway M.D. on 12/15/2017 at 15:10 Transcribed by: BRANDON on 12/15/2017 at 15:51 Approved by: Kevin Calloway M.D. on 12/15/2017 at 20:17 [facility] [employer]
[2017-12-15] MEDS ORDERED: ROSUVASTATIN CALCIUM 10 MG TAB PO SCH (21:00)
[2017-12-16 03:41] VITALS: BP 167/91
[2017-12-16] MEDS: TIOTROPIUM BROM INH 18 MCG/CAP INH SCH (05:22)
[2017-12-16 06:05] LABS: PLATELET COUNT, AUTOMATED 128 K/uL (150-450)
[2017-12-16 10:44] VITALS: BP 122/78
[2017-12-16] MEDS: ASPIRIN 81 MG ENTERIC COATED PO SCH (10:47)
[2017-12-16] MEDS: ALLOPURINOL 300 MG TAB PO SCH (10:47)
[2017-12-16] MEDS: PANTOPRAZOLE SOD 40 MG TABEC PO SCH (10:47)
[2017-12-16] MEDS: ATENOLOL 25 MG TAB PO SCH (10:47)
[2017-12-16] MEDS: TAMSULOSIN HCL 0.4 MG CAP PO SCH (10:48)
[2017-12-16] MEDS ORDERED: CLOP75TA PO (10:48)
[2017-12-16] MEDS: CLOPIDOGREL BISULFATE 75MG TAB PO SCH (10:48)
--- NOTE | 2017-12-16 10:55 | Hospitalist Depart ---
Discharge Summary Reason for Hosp/Final Diag: (1) NSTEMI (non-ST elevated myocardial infarction) Status: Acute Hospital Course & Plan: He presented with weakness, but was found to have an elevated troponin. His EKG didn't show any ischemic changes. He was already on chronic treatment with aspirin and atenolol. Plavix was added during this admission. His troponin has trended back down. His echocardiogram showed an increase in his right ventricular pressures, but was otherwise unchanged. (2) Volume overload Status: Acute Hospital Course & Plan: He did require a dose of Lasix earlier in the admission. (3) ARF (acute renal failure) Status: Acute Hospital Course & Plan: His creatinine was elevated at admission, but has been improving. (4) Atrial flutter Status: Acute Hospital Course & Plan: He is on chronic treatment with atenolol and aspirin. (5) Weakness Status: Acute Hospital Course & Plan: He will discharge with home health. (6) CKD (chronic kidney disease) stage 3, GFR 30-59 ml/min Status: Chronic (7) COPD (chronic obstructive pulmonary disease) Status: Chronic Hospital Course & Plan: He is on chronic treatment with Spiriva and albuterol. Departure Latest Vital Signs Vital Signs 12/16/17 10:44 Temp 97.7 Pulse 60 Resp 16 B/P (MAP) 122/78 (93) Pulse Ox 97 O2 Delivery Nasal Cannula O2 Flow Rate 3.0 Weight (Pounds): 173 Weight (Ounces): 9.0 Result Diagram: 12/16/17 0533 12/16/17 0533 Condition: Improved Discharge: Home, Home Health PT/OT Follow Up For: PT Evaluation and Treat Home Health RN Follow Up For: Nursing Assessment Discharge Instructions Home Meds Active Scripts Clopidogrel Bisulfate (CLOPIDOGREL) 75 Mg Tablet, 75 MG PO QDAY, #30 TAB Prov:HEATHER LOMAX DO 12/16/17 Reported Medications Cetirizine Hcl (CETIRIZINE HCL) 10 Mg Tablet, 10 MG PO QDAY, TAB 12/15/17 Rosuvastatin Calcium (Rosuvastatin Calcium) 10 Mg Tablet, 1 TAB PO QPM 12/15/17 Budesonide (BUDESONIDE) 0.5 Mg/2 Ml Ampul.neb, 2 ML IH BID Y for Severe COPD, ML 12/15/17 Atenolol (ATENOLOL) 25 Mg Tablet, 0.5 TAB PO QDAY, TAB 11/09/16 Omeprazole (OMEPRAZOLE) 20 Mg Capsule.dr, 1 CAP PO QDAY, CAP 11/05/16 Tamsulosin Hcl (FLOMAX) 0.4 Mg Cap.er.24h, 2 CAP PO QAM, CAP 11/05/16 Tiotropium [place] (SPIRIVA) 18 Mcg/Cap Inh, 18 MCG INH DAILY, INH 11/05/16 Cholecalciferol (Vitamin D3) (VITAMIN D3) 1,000 Unit Capsule, 1000 UNIT PO QDAY , CAPSULE 10/21/16 Allopurinol (Allopurinol) 300 Mg Tablet, 150 MG PO QDAY 10/21/16 Aspirin (ASPIR 81) 81 Mg Tablet.dr, 81 MG PO QDAY, TAB 10/21/16 Cyanocobalamin (Vitamin B-12) (B-12) 1,000 Mcg Tablet, 1 TAB PO QDAY 10/21/16 Docusate Sodium (DULCOLAX STOOL SOFTENER) 100 Mg Capsule, 100 MG PO PRN, CAPSULE 10/21/16 Discontinued Reported Medications Fluoxetine Hcl (FLUOXETINE HCL) 20 Mg Capsule, 1 CAP PO QAM, CAPSULE 12/15/17 Finasteride (FINASTERIDE) 5 Mg Tablet, 5 MG PO QDAY 12/15/17 Prednisone (PREDNISONE) 20 Mg Tablet, 40 MG PO QDAY, TAB 12/15/17 Ipratropium/Albuterol Sulfate (IPRAT-ALBUT 0.5-3(2.5) MG/3 ML) 3 Ml Ampul.neb, 3 ML IH Q4HR Y for COPD w/Bronchospasm 12/15/17 Lisinopril (LISINOPRIL) 20 Mg Tablet, 20 MG PO QDAY, TAB 11/05/16 Furosemide (FUROSEMIDE) 20 Mg Tablet, 1 TAB PO BID, TAB 10/21/16 Fluoxetine Hcl (FLUOXETINE HCL) 10 Mg Capsule, 10 MG PO QDAY, CAPSULE 12/15/17 Discontinued Scripts Ipratropium [place] 0.06% Ns (IPRATROPIUM BROMIDE 0.06% NS) 15 Ml [place], 2 SPRAYS NS BID, #1 BOT 11 Refills Prov:MARY ELLEN RAMIREZ JR, MD 12/07/17 Azithromycin 250 Mg Tab (AZITHROMYCIN 250 MG TAB) 250 Mg Tablet, 1 TAB PO QDAY, #6 TAB 2 tabs tomorrow then one tab once a day until finished. Prov:MARGARETTEAGANSA Catherine CARRILLO 11/10/17 Rosuvastatin Calcium (CRESTOR) 10 Mg Tab, 10 MG PO HS, #0 TAB Prov:ABE LEVY MD 11/08/16 Diet: Regular Activity: As Tolerated Venous Thromboembolism Antithrombotics Is Pt On Any Antithrombotics?: No [id number] Certification Face to Face Home Health Certification Institutional Provider conducted the [id number] encounter. Electronic Undersigning Physician Certifies Home Health. I certify that the patient has been under my care and that I had a [id number] encounter that meets the physician [id number] encounter requirements with this patient. This patient is home-bound due to safety issues and continues to require assistance with ADL's. I certify that based on my findings, that Nursing, Aides and the following Home Health services are medically necessary: Medical Necessity: Nursing, Rehab Date Face to Face Conducted: Dec 16, 2017 HEATHER LOMAX DO Dec 16, 2017 10:54
--- NOTE | 2017-12-16 13:59 | Medical Nutrition Therapy ---
Nutrition Anthropometrics Height (Inches): 72.00 Height (Calculated Centimeters: [phone] Weight (Pounds): 173 Weight (Calculated Kilograms): 78.727 BMI Calculated: 23.46 Hugo Nutrition Score: Probably Inadequate Hugo Nutrition Risk Score: 13 Dietary Referral Nutrition Risk Factors: Recent Nutrition Impact Nutrition Risk Comment: Nutrition/Food History Decreased Appetite Pt eats two meals per day- breakfast and dinner Fair Skipped Meals: Yes Breakfast: eggs, anything prepared by his sister Lunch: Skips Dinner: steak or a maceroni casserole prepared by sister with a pop of any kind Nutritional Diagnosis Nutritional Risk Acuity 2: Pr Appetite > 3d, CHF w/Complication Past Medical History: CKD stage III, COPD Nutritional Acuity: 2-Moderate Nutrition Diagnosis: Inadequate Food Intake Nutrition Etiology: Loss of Appetite Nutrition Problem/Etiology/Sym: NTEMI causing decreased PO intake prior to admit. Energy Requirement: 1980 (kcal/day (25 kcl/kg)- [place] St Jeor RMR (1500) AF 1.2 IF 1.1) Protein Requirement: 62 (g/day (0.8 g/kg)) Fluid Requirement: 1950 (mL/day (25 mL/kg)) Diet Type: CHF Diet Nutrition Intervention: Cont diet as ordered, Encourage intake Drug: Diuretics Nutrition Monitoring & Eval Nutrition Goals: Eat 75-100% Meal Nutrition Follow-Up: Fair Intake, Poor Intake RD Patient Assessment Time: [address] Assessment Type: RD Assessment Patient Nutrition Acuity: 2-Moderate Follow Up Date: Dec 19, 2017 Nutritional Comment: 12/15 Pt admitted NSTEMI. Pt on a CHF diet order with no recorded intakes. Per physician note, pt has poor PO intake for the past few days. Pt was very lethargic during visit with mortgage underwriter. Pt reports that he has had a decreased appetite but typically only consumes 2 meals per day at home that are prepared by his sister. Pt reports no difficulty chewing or swallowing and reports no known food allergies. Pt inappropriate at this time for diet education.HGB 13.5, HCT 40.5, BUN 35, Creat 1.9. Monitor pt appropriatness for diet education. Monitor intake and progress. YFN PALMER Dec 15, 2017 12:57
[2017-12-16 14:59] VITALS: BP 133/75
== END 2017-12-16 16:30 | disposition home or self-care (01) | DRG 281 ==
LOC: ER 20:08 → MED 22:20
PROVIDERS: ADMIT Internal Medicine; ATTEND Internal Medicine
DX: I21.4 Non-ST elevation (NSTEMI) myocardial infarction (principal); N17.9 Acute kidney failure, unspecified; N18.3 Chronic kidney disease, stage 3 (moderate); R53.1 Weakness; I48.92 Unspecified atrial flutter; J44.9 Chronic obstructive pulmonary disease, unspecified; Z87.891 Personal history of nicotine dependence; Z88.8 Allergy status to other drugs, medicaments and biological substances; Z95.0 Presence of cardiac pacemaker; Z85.51 Personal history of malignant neoplasm of bladder
CPT/HCPCS: 36415; 71045; 82040; 82247; 82310; 82374; 82435; 82565; 82947; 83735; 83880; 84075; 84132; 84155; 84295; 84450; 84460; 84484; 84520; 85025; 85379; 93005; 93306; 94640; 97161; 97165; 99282; 99285; J1940; J3535; J7030

== ENCOUNTER → 2017-12-14 | Outpatient (CLI) | payer MEDICARE, BC ==
[~2017-12-14] MED LIST changes: +BUDE0.5A6 IH; +CETI-169 PO; +CLOP75TA PO; +FINA5TAB67 PO; +FLUO-176 PO; +FLUO-177 PO; +IPRA3AMP21 IH; +ROSU10TA13 PO
[2017-12-15 10:56] VITALS: BMI 23.5
== END ==
LOC: AMB 19:26
PROVIDERS: ATTEND Nurse Practitioner
DX: R53.1 Weakness (principal); I48.92 Unspecified atrial flutter
CPT/HCPCS: A0425; A0427

== ENCOUNTER → 2017-12-29 | Outpatient (REF) | payer MEDICARE, BC ==
[2017-12-15 10:56] VITALS: BMI 23.5
[~2017-12-29] MED LIST changes: +BUDE0.5A6 IH; +CETI-169 PO; +CLOP75TA PO; +FINA5TAB67 PO; +FLUO-176 PO; +FLUO-177 PO; +IPRA3AMP21 IH; +ROSU10TA13 PO
== END ==
LOC: ZZSENDIN 10:55
PROVIDERS: ATTEND Family Medicine
DX: I50.9 Heart failure, unspecified (principal)
CPT/HCPCS: 82310; 82374; 82435; 82565; 82947; 83880; 84132; 84295; 84520